=== PATIENT | male | born 1970 | race Caucasian/White ===

== ENCOUNTER 2018-07-13 11:49 | Emergency (ER) | payer OTHER ==
[~2018-07-13] VITALS: Ht 180.3 cm; Wt 65.8 kg
[2018-07-13] MEDS ORDERED: PRINIVIL20 MG PO (12:00)
[2018-07-13] MEDS ORDERED: CLEOCIN HCL300 MG PO (12:35)
[2018-07-13] MEDS ORDERED: VENTOLIN HFA 1818 GM INH (12:35)
[2018-07-13] MEDS ORDERED: NORCO 5-325 TA1 EACH PO (12:36)
[2018-07-13 12:50] VITALS: BP 192/94
== END 2018-07-13 12:50 | disposition home or self-care (01) ==
LOC: M.ERS 11:49
DX: K02.9 Dental caries, unspecified (principal); I10 Essential (primary) hypertension; F17.210 Nicotine dependence, cigarettes, uncomplicated